=== PATIENT | male | born 1990 | race Caucasian/White ===

== ENCOUNTER 2018-02-25 08:45 | Emergency (ER) | payer OTHER | END 2018-02-25 10:32 | disposition home or self-care (01) | LOC: M ED 08:45 | DX: M25.462 Effusion, left knee (principal); W20.8XXA Other cause of strike by thrown, projected or falling object, initial encounter; Y92.89 Other specified places as the place of occurrence of the external cause; Z87.798 Personal history of other (corrected) congenital malformations | CPT/HCPCS: 73564 ==

== ENCOUNTER 2018-10-26 17:29 | Emergency (ER) | payer OTHER ==
[~2018-10-26] VITALS: Ht 172.7 cm; Wt 110.9 kg
[~2018-10-26 17:29] MED LIST: ALEV220C2 PO; AMPI500C
[2018-10-26 17:30] VITALS: BP 140/89
--- NOTE | 2018-10-26 18:26 | REPVR ---
EXAM: CT Maxillofacial Without Contrast EXAM DATE/TIME: 10/26/2018 5:55 PM CLINICAL HISTORY: 28 years old, male; Injury or trauma; Injury history: Tree limb; Initial encounter; Blunt trauma (contusions or hematomas); Forehead TECHNIQUE: Axial computed tomography images of the face without intravenous contrast. All CT scans at this facility use at least one of these dose optimization techniques: automated exposure control; mA and/or kV adjustment per patient size (includes targeted exams where dose is matched to clinical indication); or iterative reconstruction. Coronal and sagittal reformatted images were created and reviewed. COMPARISON: No relevant prior studies available. FINDINGS: Orbits: No acute intraorbital abnormality. Globes are unremarkable. Sinuses: Normal. No air-fluid levels. Bones/joints: No acute fracture. Soft tissues: Soft tissue swelling and laceration the right scalp. IMPRESSION: Soft tissue swelling and laceration the right scalp. Electronically signed by: Prasanna Bardales On 10/26/2018 18:25:42 PM
--- NOTE | 2018-10-26 18:29 | REPVR ---
EXAM: CT Head Without Contrast EXAM DATE/TIME: 10/26/2018 5:55 PM CLINICAL HISTORY: 28 years old, male; Injury or trauma; Injury history: Tree limb TECHNIQUE: Axial computed tomography images of the head/brain without contrast. All CT scans at this facility use at least one of these dose optimization techniques: automated exposure control; mA and/or kV adjustment per patient size (includes targeted exams where dose is matched to clinical indication); or iterative reconstruction. COMPARISON: No relevant prior studies available. FINDINGS: Brain: Normal. No hemorrhage. No significant white matter disease. No edema. Ventricles: Normal. No ventriculomegaly. Bones/joints: Unremarkable. No acute fracture. Sinuses: Visualized sinuses are unremarkable. No acute sinusitis. Mastoid air cells: Visualized mastoid air cells are unremarkable. No mastoid effusion. Soft tissues: Laceration right forehead. IMPRESSION: Laceration right forehead. Electronically signed by: Prasanna Bardales On 10/26/2018 18:29:16 PM
--- NOTE | 2018-10-26 18:32 | REPVR ---
EXAM: CT Cervical Spine Without Contrast EXAM DATE/TIME: 10/26/2018 5:55 PM CLINICAL HISTORY: 28 years old, male; Injury or trauma; Injury history: Tree limb; Initial encounter; Blunt trauma TECHNIQUE: Axial computed tomography images of the cervical spine without intravenous contrast. All CT scans at this facility use at least one of these dose optimization techniques: automated exposure control; mA and/or kV adjustment per patient size (includes targeted exams where dose is matched to clinical indication); or iterative reconstruction. Coronal and sagittal reformatted images were created and reviewed. COMPARISON: No relevant prior studies available. FINDINGS: Vertebrae: No acute fracture. Normal alignment. Discs/Spinal canal/Neural foramina: Small posterior disc protrusion at C5-6 minimally effaces the ventral subarachnoid space without significant cord impingement. Soft tissues: Unremarkable. Lungs: Lung apices are normal. IMPRESSION: No acute findings. Electronically signed by: Prasanna Bardales On 10/26/2018 18:31:41 PM
[2018-10-26] MEDS ORDERED: LIDOCAINE W/EPINEPHRINE 1% 20ML VIAL SC ONE (19:30)
[2018-10-26] MEDS ORDERED: ADACEL/BOOSTRIX VACCINE (DIPHTH/PERTUSS/ACELL/TETANUS)0.5ML SYR (90715) IM ONE (19:30)
[2018-10-26] MEDS ORDERED: KEFL500C17 PO (20:21)
[2018-10-26] MEDS ORDERED: CEPHALEXIN 500 MG CAP PO ONE (20:30)
== END 2018-10-26 20:40 | disposition home or self-care (01) ==
LOC: M ED 17:29
DX: S01.111A Laceration without foreign body of right eyelid and periocular area, initial encounter (principal); S00.83XA Contusion of other part of head, initial encounter; W22.8XXA Striking against or struck by other objects, initial encounter; Y92.89 Other specified places as the place of occurrence of the external cause; Y93.89 Activity, other specified; Y99.9 Unspecified external cause status; Q05.9 Spina bifida, unspecified